=== PATIENT | female | born 1960 | race Caucasian/White ===

== ENCOUNTER 2016-11-12 12:08 | Emergency (ER) | payer OTHER ==
[2016-11-12] MEDS ORDERED: HYDROmorphone 1 MG/ML SYRINGE IM STA (14:08)
[2016-11-12] MEDS ORDERED: KETOROLAC 60 MG/2 ML VIAL IM STA (14:10)
[2016-11-12] MEDS ORDERED: predniSONE 20 MG TABLET PO STA (14:10)
--- NOTE | 2016-11-12 14:18 | ED Physician Documentation ---
History of Present Illness - Stated complaint Stated Complaint: BACK PX - Chief complaint Chief Complaint: Back Pain - History obtained from History obtained from: Patient - Additonal information Additional information: Patient is a 56-year-old female who is for the most part very healthy. She is here with a chief back pain. His lower back pain radiates into the right lateral buttock and hip. It does not extend below the knee. She has no complaints of weakness and there is no perineal anesthesia. She has no problems with bowel or bladder control either. The patient was lifting some wood on and felt a little twinge of low back pain on however on Sunday when she is lifting her golf clubs onto the cart she felt acute onset of lower back pain that radiated to the right lateral thigh. The pain is worse with movement and better with rest. She has no history of any significant lower back pain issues. Review of systems: For pertinent positive and negatives in the review of systems please see the history of present illness, otherwise all other systems have been reviewed and are negative. Dragon disclaimer: Parts of this medical record were created using voice recognition technology. Because of the inherent limitations of this system, occasional same sounding word substitutions do occur and persist despite proofreading. Please read the document for context. 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 HEENT: Tonsil/Adenoidectomy - Present Medications Home Medications: Ambulatory Orders Medication Instructions Recorded Confirmed No Known Home Medications [No 11/12/16 11/12/16 Known Home Medications] - Allergies Allergies/Adverse Reactions: Allergies Allergy/AdvReac Type Severity Reaction Status Date / Time bupropion HCl * Allergy Unknown Verified 11/12/16 12:20 [From Wellbutrin] ibuprofen Allergy Unknown Verified 11/12/16 12:20 levofloxacin Allergy Unknown Verified 11/12/16 12:20 pyrazinamide Allergy Unknown Verified 11/12/16 12:20 - Social History Does the pt smoke?: No Smoking Status: Never smoker Does the pt drink ETOH?: Yes ETOH Use: Wine Does the pt have substance abuse?: No - Immunizations Immunizations are current?: Yes - POLST Patient has POLST: No PD ED PE NORMAL - Vitals Vital signs reviewed: Yes - General General: Alert and oriented X 3, No acute distress, Well developed/nourished - Respiratory Respiratory: No respiratory distress - Back Back: Other (On examination she has mild tenderness adjacent to L3-L4 area just off the midline to the right. There is increased tonicity in the paraspinous muscle at this level. There is no inner thigh anesthesia. Strength testing of the bilateral lower extremities is normal. The patient is able to stand on her tippy toes.) - Derm Derm: Normal color, Warm and dry - Neuro Neuro: No motor deficit, No sensory deficit - Psych Psych: Normal mood, Normal affect Results - Vitals Vitals: Vital Signs - 24 hr 11/12/16 11/12/16 12:17 15:14 Temperature 36.5 C Heart Rate 67 58 L Respiratory 14 18 Rate Blood Pressure 142/87 H 132/84 H O2 Saturation 100 98 Oxygen O2 Source Room air PD MEDICAL DECISION MAKING - ED course Complexity details: reviewed results, re-evaluated patient, considered differential, d/w patient ED course: 56-year-old female presents with low back pain radiating into the right lateral thigh. She has no weakness, loss of reflexes or high risk complaints such of bowel or bladder incontinence. A CT scan of her back was done and it shows mild lumbar DJD and facet arthropathy no significant canal or foraminal stenosis identified on CT. The patient clinically is doing much better after getting a single shot of Toradol, Dilaudid, and prednisone. I will place her on outpatient narcotic analgesia, Tylenol, and oral prednisone. Disposition: To home Clinical impression: 1. Low back strain with right-sided sciatica-facet arthropathy and mild DJD without evidence of significant canal or foraminal stenosis on CT
[2016-11-12] MEDS ORDERED: predniSONE 20 MG TABLET ONE (14:28)
[2016-11-12] MEDS ORDERED: HYDROmorphone 1 MG/ML SYRINGE ONE (14:28)
[2016-11-12] MEDS ORDERED: KETOROLAC 60 MG/2 ML VIAL ONE (14:28)
--- NOTE | 2016-11-12 15:33 | CT Preliminary Report ---
Exam: CT Lumbar Spine W/O IMPRESSION: 1. Mild lumbar degenerative disk and facet arthropathy. No appreciable significant canal or foraminal stenosis identified on CT. [facility] SITE ID: [id number]
--- NOTE | 2016-11-12 15:36 | CT Report ---
EXAM: CT LUMBAR SPINE WITHOUT CONTRAST EXAM DATE: 11/12/2016 02:45 PM. CLINICAL HISTORY: Right side sciatica L3-L4. COMPARISONS: None. TECHNIQUE: Thin-section axial images were acquired of the lumbar spine from T12 to S1 without contras t. Post-processing: Coronal and sagittal reformats. Other: None. In accordance with CT protocol optimization, one or more of the following dose reduction techniques w ere utilized for this exam: automated exposure control, adjustment of mA and/or KV based on patient s ize, or use of iterative reconstructive technique. FINDINGS: Alignment: Normal. No scoliosis or spondylolisthesis. Bones: Five [id number] lumbar vertebral bodies are present. No fractures or bone lesions. Disk Levels/Facets: T12-L1: Unremarkable. L1-L2: Unremarkable. L2-L3: Mild disk height loss. Minimal annular disk bulge. L3-L4: Mild degenerative facet arthropathy. Slight annular disk bulge. L4-L5: Mild degenerative facet arthropathy. Annular disk bulge. L5-S1: Mild disk height loss. Mild degenerative facet arthropathy. Musculature: Normal. No fatty atrophy. Other: Unremarkable. IMPRESSION: 1. Mild lumbar degenerative disk and facet arthropathy. No appreciable significant canal or foraminal stenosis identified on CT. [facility] Referring Provider Line: [phone] SITE ID: [id number]
[2016-11-12 16:24] VITALS: BP 132/87
== END 2016-11-12 16:24 | disposition home or self-care (01) ==
LOC: ED 12:08
DX: M54.41 Lumbago with sciatica, right side (principal)
CPT/HCPCS: 72131; 96372; 99283; J1170; J7512